=== PATIENT | female | born 1950 | race Caucasian/White ===

== ENCOUNTER → 2016-12-22 | Outpatient (REF) | payer MEDICARE | LOC: M LAB REF 16:25 | PROVIDERS: ATTEND Physician Assistant | DX: J02.9 Acute pharyngitis, unspecified (principal) ==

== ENCOUNTER → 2017-01-21 | Outpatient (REF) | payer MEDICARE ==
[2017-01-21 17:34] LABS: BASO % 0.4 % (0.0-1.0); EOS # 0.1 K/mm3 (0.0-0.50); EOS % 1.7 % (0.0-3.0); LARGE UNSTAINED CELL # 0.1 K/mm3 (0.0-0.4); LARGE UNSTAINED CELL % 1.8 % (0.0-4.0); LYMPH # 1.9 K/mm3 (1.5-4.5); MEAN CORPUSCULAR HEMOGLOBIN 27.1 pg (27.0-33.0); MEAN CORPUSCULAR HGB CONC 32.5 g/dl (32.0-36.5); MEAN CORPUSCULAR VOLUME 83.6 fl (80.0-96.0); MONO # 0.5 K/mm3 (0.0-0.8); MONO % 7.1 % (0.0-5.0); NEUTROPHILS # 4.1 K/mm3 (1.8-7.7); PLATELET COUNT, AUTOMATED 249 k/mm3 (150-450); RED CELL DISTRIBUTION WIDTH 13.5 % (11.5-14.5); WHITE BLOOD COUNT 6.7 K/mm3 (4.0-10.0)
[2017-01-21 18:03] LABS: ALBUMIN 3.9 GM/DL (3.2-5.2); ALBUMIN/GLOBULIN RATIO 1.22 (1.00-1.93); ALKALINE PHOSPHATASE 83 U/L (45-117); ALT/SGPT 34 U/L (12-78); AST/SGOT 22 U/L (15-37); BILIRUBIN,DIRECT < 0.1 MG/DL (0.0-0.2); BILIRUBIN,TOTAL 0.3 MG/DL (0.2-1.0); CALCIUM LEVEL 9.4 MG/DL (8.8-10.2); CREATININE FOR GFR 0.71 MG/DL (0.55-1.02); GLOMERULAR FILTRATION RATE > 60.0 (>45); TOTAL PROTEIN 7.1 GM/DL (6.4-8.2)
[2017-01-27 00:06] LABS: BLASTOMYCES ANTIBODY LEVEL Negative (Neg:<1:1); CRYPTOCOCCUS ANTIGEN SER Negative (Negative); VITAMIN D 1,25 DIHYDROXY 57.4 pg/mL (19.9-79.3)
[2017-02-03 16:20] LABS: COCCIDIOMYCOSIS ANTIBODY NEGATIVE (NEGATIVE)
== END ==
LOC: M LAB REF 17:08
PROVIDERS: ATTEND Internal Medicine Pulmonary Disease
DX: R91.8 Other nonspecific abnormal finding of lung field (principal)

== ENCOUNTER → 2017-04-16 | Outpatient (CLI) | payer MEDICARE ==
--- NOTE | 2017-04-16 14:17 | REP ---
CT of the chest without IV contrast: Comparison is 01/06/2017. The patient has the following noncalcified lung nodules: Images 51, left upper lobe, 9 mm, unchanged. Image 53, right upper lobe, 6 mm, unchanged. Image 58, lingula, 5 mm (4 mm previously). Image 61, right lower lobe, 6 mm, unchanged. Image 63, lingula, 5 mm, 4 mm previously. Image 65, lingula, 14 mm, unchanged. The patient has the following calcified granulomas: Image 34, right upper lobe, 14 mm, unchanged. Image 83, right lower lobe, 20 mm, unchanged. There is no mediastinal or axillary lymphadenopathy. The study is insensitive for hilar lymphadenopathy in the absence of IV contrast. Thoracic aorta is unremarkable. Cardiac size is normal. In the upper abdomen there is no adrenal mass. There are several hepatic cysts, unchanged, the largest posteriorly in the dome of the liver measuring 4.0 cm. Impression: Multiple lung nodules as described. No significant size increase. Signed by Shukri Ford MD 04/16/2017 02:09 P
== END ==
LOC: M RAD 11:01
PROVIDERS: ATTEND Internal Medicine Pulmonary Disease
DX: R91.8 Other nonspecific abnormal finding of lung field (principal)

== ENCOUNTER → 2017-10-22 | Outpatient (CLI) | payer MEDICARE | LOC: M RAD 11:03 | DX: R91.8 Other nonspecific abnormal finding of lung field (principal) | CPT/HCPCS: 71250 ==

== ENCOUNTER → 2018-02-09 | Outpatient (CLI) | payer MEDICARE ==
[2018-02-09 13:48] LABS: ALBUMIN 3.7 GM/DL (3.2-5.2); ALBUMIN/GLOBULIN RATIO 1.09 (1.00-1.93); ALKALINE PHOSPHATASE 88 U/L (45-117); ALT/SGPT 38 U/L (12-78); ANION GAP 7 MEQ/L (8-16); AST/SGOT 25 U/L (7-37); BILIRUBIN,TOTAL 0.7 MG/DL (0.2-1.0); BLOOD UREA NITROGEN 19 MG/DL (7-18); CALCIUM LEVEL 8.8 MG/DL (8.8-10.2); CARBON DIOXIDE LEVEL 30 MEQ/L (21-32); CHLORIDE LEVEL 107 MEQ/L (98-107); CHOLESTEROL LEVEL 152 MG/DL (<200); CHOLESTEROL RISK RATIO 3.619 (<5); CREATININE FOR GFR 0.89 MG/DL (0.55-1.30); GLOMERULAR FILTRATION RATE > 60.0 (>45); GLUCOSE, FASTING 101 MG/DL (70-100); HDL CHOLESTEROL 42 MG/DL (>40); LDL CHOLESTEROL 71.4 MG/DL (<100); NON-HDL-C 110 MG/DL; POTASSIUM SERUM 4.7 MEQ/L (3.5-5.1); SODIUM LEVEL 144 MEQ/L (136-145); TOTAL PROTEIN 7.1 GM/DL (6.4-8.2); TRIGLYCERIDES LEVEL 193 MG/DL (<150)
[2018-02-09 14:35] LABS: ESTIMATED AVERAGE GLUCOSE 123 MG/DL (60-110); HEMOGLOBIN A1c 5.9 %
== END ==
LOC: M SMT 08:56
DX: E78.2 Mixed hyperlipidemia (principal); R73.01 Impaired fasting glucose
CPT/HCPCS: 80053

== ENCOUNTER → 2018-10-24 | Outpatient (CLI) | payer MEDICARE ==
--- NOTE | 2018-10-24 15:34 | REP ---
REASON FOR EXAM: Followup pulmonary nodules. COMPARISON: All priors were reviewed, the latest 10/22/2017. Mediastinum and pulmonary maría are unchanged. No mass or adenopathy has developed. The imaged upper abdomen is unchanged. Hepatic cysts is status quo. There is no significant change in appearance of the imaged osseous structures. Evaluation of the lung cho shows completely stable nodules and calcified granulomas. Certainly, the larger nodules with central calcifications could be secondary to pulmonary hamartomas. There are no new abnormal nodules, mass, or opacities. IMPRESSION: Completely stable CT findings as described above. According to the revised Fleischner's Society criteria exam represents a lung-RADS category [address] screening is recommended provided the patient's risk factor remain high. Electronically Signed by Hayden Andrews DO 10/24/2018 04:53 P
== END ==
LOC: M RAD 07:03
PROVIDERS: ATTEND Internal Medicine Pulmonary Disease
DX: R91.8 Other nonspecific abnormal finding of lung field (principal); J84.10 Pulmonary fibrosis, unspecified; K76.89 Other specified diseases of liver

== ENCOUNTER 2019-01-24 04:10 | Emergency (ER) | payer MEDICARE ==
[~2019-01-24] VITALS: Ht 167.6 cm; Wt 95.5 kg
[2019-01-24 04:11] VITALS: BP 162/81
[2019-01-24] MEDS ORDERED: FLUO20CA19 (04:23)
[2019-01-24] MEDS ORDERED: ATOR1TAB21 (04:23)
[2019-01-24] MEDS ORDERED: LOSA25TA14 (04:23)
[2019-01-24] MEDS ORDERED: DIPH25CA32 (04:23)
[2019-01-24] MEDS ORDERED: AMIT10TA (04:23)
[2019-01-24] MEDS ORDERED: IBUPOTC (04:23)
[2019-01-24] MEDS ORDERED: ASPI81TA33 (04:23)
== END 2019-01-24 05:26 | disposition left against medical advice (07) ==
LOC: M ED 04:10
DX: Z53.29 Procedure and treatment not carried out because of patient's decision for other reasons (principal)

== ENCOUNTER 2021-01-11 13:27 | Emergency (ER) | payer MEDICARE ==
[~2021-01-11] VITALS: Ht 165.1 cm; Wt 103.9 kg
[~2021-01-11 13:27] MED LIST: AMIT10TA7; ASPI81TA33; ATOR1TAB21; DIPH25CA32; FLUO20CA22; IBUPOTC; LOSA25TA14
[2021-01-11] MEDS ORDERED: METHOCARBAMOL 1,000 MG/10 ML VIAL (J2800) IM ONE (15:55)
[2021-01-11] MEDS ORDERED: LIDOCAINE 5% (LIDODERM) PATCH TD ONE (15:55)
[2021-01-11 16:31] LABS: BASO % 0.3 % (0.0-1.0); EOS # 0.1 10^3/uL (0.0-0.5); EOS % 2.3 % (0.0-3.0); HEMATOCRIT 38.4 % (36.0-47.0); HEMOGLOBIN 12.4 g/dl (12.0-15.5); LYMPH # 1.8 10^3/uL (1.5-5.0); LYMPH % 29.1 % (24.0-44.0); MEAN CORPUSCULAR HEMOGLOBIN 28.6 pg (27.0-33.0); MEAN CORPUSCULAR HGB CONC 32.3 g/dl (32.0-36.5); MEAN CORPUSCULAR VOLUME 88.5 fl (80.0-96.0); MONO # 0.7 10^3/uL (0.0-0.8); MONO % 11.8 % (2.0-8.0); NEUTROPHILS # 3.5 10^3/uL (1.5-8.5); PLATELET COUNT, AUTOMATED 218 10^3/uL (150-450); RED BLOOD COUNT 4.34 10^6/uL (4.00-5.40); WHITE BLOOD COUNT 6.2 10^3/uL (4.0-10.0)
[2021-01-11 16:46] LABS: ERYTHROCYTE SEDIMENTATION RATE 29 mm/hr (0-30)
[2021-01-11 16:55] LABS: ALBUMIN 3.7 GM/DL (3.2-5.2); ALT/SGPT 42 U/L (12-78); BILIRUBIN,DIRECT 0.1 MG/DL (0.0-0.2); BILIRUBIN,TOTAL 0.4 MG/DL (0.2-1.0); C REACTIVE PROTEIN QUANTITATIV < 0.30 MG/DL (0.00-0.30); TOTAL PROTEIN 7.1 GM/DL (6.4-8.2)
--- NOTE | 2021-01-11 17:17 | REP ---
INDICATION: r sided pain, R hip and down leg. COMPARISON: X-ray 08/18/2014, CT chest 10/24/2018 TECHNIQUE: Noncontrast scanning with coronal and sagittal bone window reconstructions. Angled axial reconstructions also performed through the of lower 3 levels. FINDINGS: About 3 mm anterolisthesis of L3 on L4 as on the previous x-ray 6 years ago. There is disc space narrowing at that level slight narrowing at other levels. Anterior osteophytes are also present. There is facet arthropathy from L2-3 through L5-S1 but without spondylolysis or spondylolisthesis. I see no compression deformity from T12 through S2. Marginal osteophytes at T11-12 are noted but no central canal or foraminal stenosis. T12-L1 there is no significant disc bulge or herniation and no spinal or foraminal stenosis. At L1-2 small of posterior osteophytic ridge flattening ventral thecal sac but not causing any significant central canal stenosis foramina marginally adequate. At L2-3 there is flattening of the ventral thecal sac with slight narrowing of the AP canal diameter to 9 mm, foramina adequate. At L3-4 anterolisthesis noted flattening of the ventral thecal sac, ligamentum and facet hypertrophy contributing to lateral recess and spinal stenosis with the canal down to 7.6 mm. Foramina marginally adequate. At L4-5 some mild disc bulge abutting the ventral thecal sac without causing significant spinal or foraminal stenosis. Facet arthropathy at this level noted. At L5-S1 there is a broad-based disc bulge extending into the foramina tubing some mild foraminal encroachment on the central canal shows adequate cross-sectional area although the bulge abuts it. The S1 nerve roots in the central canal do not show a displacement the L5 nerve roots in the foramina do not show compression. Incidentally noted is a large simple cyst in the posterior aspect of the right hepatic lobe about 5.4 cm as seen on previous CT chest 10/24/2018. IMPRESSION: 1. Multilevel degenerative disc disease with the central canal stenosis greatest at L3-4 at 7.5 mm AP diameter due to combined factors, mild at L2-3 and with foraminal encroachment L5-S1. Marginally adequate foramina at L1-2 and L3-4. No other significant or acute finding. No compression fractures or destructive lesions. No spondylolysis or spondylolisthesis. <Electronically signed by Elliot Galdamez > 01/11/21 0748
--- NOTE | 2021-01-11 17:45 | REP ---
INDICATION: severe R hip pain, NKI. COMPARISON: None. TECHNIQUE: Two views FINDINGS: Superior and inferior acetabular spurring noted with these prominent marginal osteophytes representing a significant degenerative change although the hip joint space does not show significant narrowing. There is no evidence of AVN or fracture. There is calcification adjacent to the greater trochanter may reflect some calcific tendinopathy or old avulsion about the tendinous insertion of the gluteus medius on the greater tuberosity. Pubic rami, visualized portion of symphysis pubis, the right SI joint and iliac bone are without a definite acute finding. Intertrochanteric and subtrochanteric femur unremarkable. That portion of the sacrum visualized intact. Multiple pelvic phleboliths. IMPRESSION: 1. Some osteoarthritic spurring prominent on the acetabular roof and inferior spurs without hip joint space narrowing, AVN or fracture. 2. Soft tissue calcifications adjacent to the greater trochanter which appear to represent calcific tendinopathy or old tendon avulsion with smooth margins. No definite acute fracture. <Electronically signed by Elliot Galdamez > 01/11/21 [id number]
[2021-01-11] MEDS ORDERED: DICL20GE TP (18:03)
[2021-01-11] MEDS ORDERED: METH-1165 PO (18:03)
[2021-01-11 18:20] VITALS: BP 182/90
[2021-01-11] MEDS ORDERED: **NOTE PATIENT COMMENT** MISC XX SCH (21:00)
== END 2021-01-11 18:22 | disposition home or self-care (01) ==
LOC: M ED 13:27
DX: M51.37 Other intervertebral disc degeneration, lumbosacral region (principal); M48.07 Spinal stenosis, lumbosacral region; M25.551 Pain in right hip; M16.11 Unilateral primary osteoarthritis, right hip; I10 Essential (primary) hypertension; E78.5 Hyperlipidemia, unspecified; Z79.899 Other long term (current) drug therapy; Z88.8 Allergy status to other drugs, medicaments and biological substances
CPT/HCPCS: 72131; 73502; 80047; 80076; 85025; 85652; 86140; 96372; 99283; J2800

== ENCOUNTER 2021-01-16 09:08 | Emergency (ER) | payer MEDICARE ==
[~2021-01-16] VITALS: Ht 165.1 cm; Wt 103.2 kg
[~2021-01-16 09:08] MED LIST changes: +DICL20GE TP; +METH-1165 PO
[2021-01-16] MEDS ORDERED: diazePAM 10MG/2ML SYRINGE (J3360 PER 5MG) IV ONE (11:10)
--- NOTE | 2021-01-16 13:28 | REPVR ---
PROCEDURE INFORMATION: Exam: MR Lumbar Spine Without Contrast Exam date and time: 01/16/2021 12:46 PM Age: 70 years old Clinical indication: Pain; Lumbago with sciatica; Bilateral; Additional info: Pain with radicular symptoms TECHNIQUE: Imaging protocol: Multiplanar magnetic resonance images of the lumbar spine without intravenous contrast. COMPARISON: CT Spine, lumbar w/o contrast 01/11/2021 4:09 PM FINDINGS: Vertebrae: Vertebral body heights normal. There is stable 3.5 mm grade 1 degenerative anterolisthesis of L3 on L4. There is lumbar disc desiccation. There is disc height loss greatest at L1-L2 and L3-L4. There is low signal corresponding to sclerosis in the posterior aspect of L4 vertebral body and pedicle. Minimal endplate degenerative marrow changes. There is mild increase in epidural fat. Spinal cord: Conus terminates at T12-L1 and appears normal in signal intensity without intrinsic or extrinsic lesion. L1-L2: There is mild disc bulge and minimal posterior osteophyte. There is mild facet degeneration. There is no significant spinal stenosis. There is no significant right and mild left neural foraminal narrowing. L2-L3: There is moderate disc bulge and minimal posterior osteophyte. There is mild facet degeneration. There is mild spinal stenosis. There is minimal bilateral neural foraminal narrowing. L3-L4: There is large disc bulge. There is mild posterior osteophyte. There is moderate thickening of ligamentum flavum and prominent facet degeneration. There is moderate spinal stenosis. There is mild left greater than right neural foraminal narrowing. There is a broad-based left foraminal and extraforaminal disc protrusion which contacts but does not displace the exiting left L3 nerve root. L4-L5: There is moderate disc bulge. There is moderate thickening of ligamentum flavum and facet degeneration. There is no significant spinal stenosis. There is mild narrowing of superior aspect of L5 subarticular recesses. There is [id number] bilateral neural foraminal narrowing. L5-S1: There is moderate disc bulge. There is moderate facet degeneration. There is no significant spinal stenosis. There is mild narrowing of medial aspect of bilateral neural foramen neural foraminal narrowing. Soft tissues: Unremarkable. IMPRESSION: Multilevel degenerative changes with spinal canal narrowing at L3-L4 greater than L2-L3 and neural foraminal narrowing as described. Grade 1 degenerative anterolisthesis of L3 on L4. Electronically signed by: Nikki Jenkins On 01/16/2021 13:28:04 PM
[2021-01-16] MEDS ORDERED: KETOROLAC 30 MG/ML 1ML VIAL IV ONE (14:00)
[2021-01-16] MEDS ORDERED: ONDANSETRON 4MG/2ML VIAL IV ONE (14:00)
[2021-01-16] MEDS ORDERED: LIDOCAINE 5% (LIDODERM) PATCH TD ONE (14:05)
[2021-01-16] MEDS: MORPHINE 4 MG/ML 1ML VIAL/SYRINGE (J2270) IV PRN ×2 (15:11→16:25)
[2021-01-16] MEDS ORDERED: PERC5TAB12 PO (16:29)
[2021-01-16] MEDS ORDERED: MEDR4PAK PO (16:30)
--- NOTE | 2021-01-16 17:40 | ECGEPIP ---
[facility] - ED Test Date: 2021-01-16 Pat Name: MALIK BOWIE Department: Room: - Gender: Female [employer]ter: Juan RAMIREZ : 1950 Requested By: Rosy Case Order Number: [id number] Reading MD: Steve Hernandez Measurements Intervals [place] Rate: 63 P: 12 GA: 148 QRS: -20 QRSD: 92 T: 12 QT: 422 QTc: 431 Interpretive Statements Normal sinus rhythm Delayed anterior R wave progression Comparison tracing not on file Electronically Signed on 01-16-2021 17:40:37 EDT by Steve Hernandez
[2021-01-16 17:41] VITALS: BP 152/70
[2021-01-16] MEDS ORDERED: **NOTE PATIENT COMMENT** MISC XX ONE (21:00)
--- NOTE | 2021-01-19 15:03 | ED PDOC ---
Post-Departure Follow-Up radiology report faxed to Rosy Quintanilla MD Jan 19, 2021 15:03
== END 2021-01-16 17:50 | disposition home or self-care (01) ==
LOC: M ED 09:08
DX: M51.26 Other intervertebral disc displacement, lumbar region (principal); F41.9 Anxiety disorder, unspecified; F32.9 Major depressive disorder, single episode, unspecified; Z79.899 Other long term (current) drug therapy; Z88.8 Allergy status to other drugs, medicaments and biological substances
CPT/HCPCS: 72148; 84484; 93005; 96374; 96376; 99284; J1885; J2270; J3360

== ENCOUNTER → 2021-02-07 | Outpatient (CLI) | payer MEDICARE ==
[~2021-02-07] MED LIST changes: +MEDR4PAK PO; +PERC5TAB12 PO
== END ==
LOC: M LABSMTC 09:43
PROVIDERS: ATTEND Pediatrics
DX: Z20.822 Contact with and (suspected) exposure to COVID-19 (principal)
CPT/HCPCS: C9803; U0003

== ENCOUNTER → 2021-03-20 | Outpatient (CLI) | payer MEDICARE | LOC: M PAIN 08:30 | PROVIDERS: ATTEND Anesthesiology | DX: M51.16 Intervertebral disc disorders with radiculopathy, lumbar region (principal); G89.29 Other chronic pain; G47.00 Insomnia, unspecified; Z88.5 Allergy status to narcotic agent; Z79.82 Long term (current) use of aspirin; Z79.899 Other long term (current) drug therapy ==

== ENCOUNTER → 2021-04-23 | Outpatient (CLI) | payer MEDICARE | LOC: M LABSMTC 11:10 | PROVIDERS: ATTEND Anesthesiology | DX: Z01.812 Encounter for preprocedural laboratory examination (principal); Z20.822 Contact with and (suspected) exposure to COVID-19 ==

== ENCOUNTER → 2021-04-28 | Outpatient (CLI) | payer MEDICARE ==
[~2021-04-28] MED LIST changes: +ISOVUE-M 300 61% 15ML VIAL As Ordered ONE; +LIDOCAINE 1% SDV 30ML VIAL As Ordered ONE; +diazePAM 5MG TABLET As Ordered ONE; +methylPREDNISolone SUSP 40MG/ML 1ML VIAL (DEPO MEDROL) As Ordered ONE; +oxyCODONE 5MG TAB As Ordered ONE
--- NOTE | 2021-04-28 11:31 | REP ---
INDICATION: LUMBAR EPIDURAL STEROID INJECTION. COMPARISON: None. TECHNIQUE: Two C-arm views lower lumbar spine. FINDINGS: A needle is seen at the L4-5 level. A small amount of contrast is injected. IMPRESSION: It 7 seconds of fluoroscopy time was utilized. <Electronically signed by Shukri Moreno > 04/28/21 [id number]
== END ==
LOC: M PAIN 08:30
PROVIDERS: ATTEND Anesthesiology
DX: M51.16 Intervertebral disc disorders with radiculopathy, lumbar region (principal); E78.5 Hyperlipidemia, unspecified; G47.00 Insomnia, unspecified; F32.A Depression, unspecified; I10 Essential (primary) hypertension; E78.1 Pure hyperglyceridemia; Z85.828 Personal history of other malignant neoplasm of skin; Z79.82 Long term (current) use of aspirin; Z79.52 Long term (current) use of systemic steroids; Z79.899 Other long term (current) drug therapy; Z88.5 Allergy status to narcotic agent
CPT/HCPCS: 62323; J1030; Q9967

== ENCOUNTER → 2021-06-13 | Outpatient (CLI) | payer MEDICARE ==
[~2021-06-13] MED LIST changes: -ISOVUE-M 300 61% 15ML VIAL As Ordered ONE; -LIDOCAINE 1% SDV 30ML VIAL As Ordered ONE; -diazePAM 5MG TABLET As Ordered ONE; -methylPREDNISolone SUSP 40MG/ML 1ML VIAL (DEPO MEDROL) As Ordered ONE; -oxyCODONE 5MG TAB As Ordered ONE
== END ==
LOC: M PAIN 09:45
PROVIDERS: ATTEND Nurse Practitioner Family
DX: M51.16 Intervertebral disc disorders with radiculopathy, lumbar region (principal); Z79.82 Long term (current) use of aspirin; Z79.899 Other long term (current) drug therapy

== ENCOUNTER → 2021-08-29 | Outpatient (CLI) | payer MEDICARE ==
[~2021-08-29] MED LIST changes: +LOSA25TA13; -LOSA25TA14
== END ==
LOC: M PAIN 09:30
PROVIDERS: ATTEND Anesthesiology
DX: M48.061 Spinal stenosis, lumbar region without neurogenic claudication (principal); G89.29 Other chronic pain; Z86.59 Personal history of other mental and behavioral disorders; Z88.5 Allergy status to narcotic agent; Z79.82 Long term (current) use of aspirin; Z79.899 Other long term (current) drug therapy

== ENCOUNTER → 2022-07-02 | Outpatient (CLI) | payer MEDICARE ==
[~2022-07-02] MED LIST changes: +DIPH-435; -DIPH25CA32
[2022-07-02 16:48] LABS: HEMATOCRIT 38.5 % (36.0-47.0); HEMOGLOBIN 11.9 g/dl (12.0-15.5); MEAN CORPUSCULAR HEMOGLOBIN 27.2 pg (27.0-33.0); MEAN CORPUSCULAR HGB CONC 30.9 g/dl (32.0-36.5); MEAN CORPUSCULAR VOLUME 88.1 fl (80.0-96.0); PLATELET COUNT, AUTOMATED 321 10^3/uL (150-450); RED BLOOD COUNT 4.37 10^6/uL (4.00-5.40); WHITE BLOOD COUNT 8.1 10^3/uL (4.0-10.0)
[2022-07-02 16:56] LABS: ALBUMIN 3.8 G/DL (3.2-5.2); ALKALINE PHOSPHATASE 102 U/L (46-116); ALT/SGPT 14 U/L (7.0-40); AST/SGOT 23 U/L (<34); BILIRUBIN,TOTAL 0.4 MG/DL (0.3-1.2); BLOOD UREA NITROGEN 19 MG/DL (9-23); CALCIUM LEVEL 9.4 MG/DL (8.3-10.6); CARBON DIOXIDE LEVEL 29 MMOL/L (20-31); CHLORIDE LEVEL 103 MMOL/L (98-107); CHOLESTEROL LEVEL 139 MG/DL (<200); CHOLESTEROL RISK RATIO 3.72 (<5); CREATININE FOR GFR 0.93 MG/DL (0.55-1.30); GLOMERULAR FILTRATION RATE > 60.0 (>39); GLUCOSE, FASTING 123 MG/DL (74-106); HDL CHOLESTEROL 37.3 MG/DL (>40); LDL CHOLESTEROL 63.9 MG/DL (<100); NON-HDL-C 102 MG/DL; POTASSIUM SERUM 4.1 MMOL/L (3.5-5.1); SODIUM LEVEL 141 MMOL/L (136-145); TOTAL PROTEIN 6.9 G/DL (5.7-8.2); TRIGLYCERIDES LEVEL 189 MG/DL (<150)
[2022-07-02 17:56] LABS: HEMOGLOBIN A1c 5.8 % (4.0-6.0)
== END ==
LOC: M WUC 13:36
PROVIDERS: ATTEND Internal Medicine
DX: E78.5 Hyperlipidemia, unspecified (principal); R73.01 Impaired fasting glucose; J16.8 Pneumonia due to other specified infectious organisms; R91.1 Solitary pulmonary nodule

== ENCOUNTER → 2022-07-20 | Outpatient (CLI) | payer MEDICARE | LOC: M PAIN 09:30 | PROVIDERS: ATTEND Nurse Practitioner Family | DX: M51.16 Intervertebral disc disorders with radiculopathy, lumbar region (principal); G89.29 Other chronic pain; I10 Essential (primary) hypertension; Z86.59 Personal history of other mental and behavioral disorders; Z88.5 Allergy status to narcotic agent; Z79.82 Long term (current) use of aspirin; Z79.899 Other long term (current) drug therapy ==

== ENCOUNTER 2023-12-09 10:34 | Day surgery (SDC) | payer MEDICARE ==
[~2023-12-09] VITALS: Ht 167.6 cm; Wt 97.0 kg
[~2023-12-09 10:34] MED LIST changes: +AMIT25TA19 PO; +ECOT81TA5 PO; +FLUO-365; -FLUO20CA22; +FLUO40CA PO
[2023-12-09] MEDS: NS 1,000 ML IV ONE (10:53)
[2023-12-09] MEDS ORDERED: LIDOCAINE 2% 100MG/5ML SDV (FOR ANES.) As Ordered ONE (11:57)
[2023-12-09] MEDS ORDERED: propofoL 200 MG/20 ML VIAL As Ordered ONE (11:57)
[2023-12-09 12:22] VITALS: TEMP 98.1
[2023-12-09 12:39] VITALS: BP 142/66; O2SAT 96
== END 2023-12-09 12:47 | disposition home or self-care (01) ==
LOC: M OPP 10:34
PROVIDERS: ATTEND Surgery
DX: D12.6 Benign neoplasm of colon, unspecified (principal); R19.4 Change in bowel habit; Z80.0 Family history of malignant neoplasm of digestive organs; I10 Essential (primary) hypertension; Z79.02 Long term (current) use of antithrombotics/antiplatelets; Z79.82 Long term (current) use of aspirin; Z79.899 Other long term (current) drug therapy; Z88.5 Allergy status to narcotic agent

== ENCOUNTER → 2024-06-23 | Outpatient (REF) | payer MEDICARE | LOC: M LABWUC 18:22 | PROVIDERS: ATTEND Internal Medicine | DX: M25.519 Pain in unspecified shoulder (principal) ==